=== PATIENT | male | born 1975 | race Caucasian/White ===

== ENCOUNTER 2020-12-30 17:35 | Inpatient (IN) ==
[2020-12-30 19:30] LABS: Basophils # (auto) 0.03 K/uL (0-0.2); Basophils % (auto) 0.5 %; Eosinophils % (auto) 1.6 %; Hemoglobin 15.1 g/dL (14.0-18.0); Lymphocytes # (auto) 1.53 K/uL (1.2-3.4); Lymphocytes % (auto) 24.3 %; Mean Corpuscular Hgb Conc 35.1 g/dL (32-36); Mean Corpuscular Volume 85.3 fL (80-100); Mean Platelet Volume 10.4 fL (7.4-10.4); Monocytes # (auto) 0.48 K/uL (0.11-0.59); Monocytes % (auto) 7.6 %; Neutrophils # (auto) 4.16 K/uL (1.4-6.5); Platelet Count 281 K/uL (130-400); RDW Coefficient of Variation 11.9 % (11.5-14.5); RDW Standard Deviation 36.7 fL (36.4-46.3); Red Blood Count 5.04 M/uL (4.7-6.1)
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
[2020-12-30 19:48] LABS: Alanine Aminotransferase 21 U/L (12-78); Albumin Level 3.9 gm/dl (3.4-5.0); Aspartate Aminotransferase 9 U/L (15-37); BUN Creatinine Ratio 11.8 (10-20); Blood Urea Nitrogen 13 mg/dl (7-18); C Reactive Protein < 0.29 mg/dl (0-0.29); Calcium 9.6 mg/dl (8.5-10.1); Carbon Dioxide 28 mmol/L (21-32); Chloride 105 mmol/L (98-107); Est GFR (African American) 98.4 ml/min; Est GFR (Non-African American) 84.9 ml/min; Glucose 97 mg/dl (70-99); Potassium 3.9 mmol/L (3.5-5.1); Sodium 140 mmol/L (136-145)
[2020-12-30 19:56] LABS: Albumin Globulin Ratio 1.2 (0.9-2); Alkaline Phosphatase 40 U/L (45-117); Bilirubin,Total 1.2 mg/dl (0.2-1); Globulin 3.2 gm/dl (2.5-4.0); Phosphorus 5.3 mg/dl (2.5-4.9); Total Protein 7.1 gm/dl (6.4-8.2)
[2020-12-30 20:19] LABS: Lyme Ab IgG w/WB Rflx Negative (Negative); Lyme Ab IgM w/WB Rflx Negative (Negative)
[2020-12-30 20:29] LABS: Appearance Urine Clear (Clear); Bilirubin Urine Negative (Negative); Blood Urine Negative (Negative); Color Urine Yellow; Glucose Urine UA Negative (Negative); Ketones Urine Negative (Negative); Leukocyte Esterase Urine Negative (Negative); Nitrite Urine Negative (Negative); Protein Urine Negative (Negative); Specific Gravity Urine 1.016 (1.000-1.030); Urobilinogen Urine Negative (Negative); pH Urine 5.5 (4.5-7.5)
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
[2020-12-31] MEDS ORDERED: ONDANSETRON INJ 2 MG/ML 2 ML VIAL IV PRN (00:17)
[2020-12-31 00:49] LABS: Creatine Kinase 48 U/L (39-308); Prostate Specific Antigen 0.544 ng/ml (0-4)
[2020-12-31 01:55] LABS: Folate (Folic Acid) > 20.00 ng/ml (>5.38); Vitamin B12 996 pg/ml (193-986)
--- NOTE | 2020-12-31 04:29 | Billing Data ---
Date of Service December 30, 2020 Coding Level of Care Code 27517 Initial Inpt Care Lvl 2
[2020-12-31 06:09] LABS: Basophils # (auto) 0.03 K/uL (0-0.2); Basophils % (auto) 0.5 %; Eosinophils % (auto) 3.3 %; Hemoglobin 14.4 g/dL (14.0-18.0); Immature Granulocytes # (auto) 0.01 K/uL (0.00-0.02); Immature Granulocytes % (auto) 0.2 %; Lymphocytes # (auto) 1.56 K/uL (1.2-3.4); Lymphocytes % (auto) 25.9 %; Mean Corpuscular Hemoglobin 29.6 pg (25-34); Mean Corpuscular Hgb Conc 35.1 g/dL (32-36); Mean Corpuscular Volume 84.4 fL (80-100); Mean Platelet Volume 10.7 fL (7.4-10.4); Monocytes # (auto) 0.44 K/uL (0.11-0.59); Monocytes % (auto) 7.3 %; Neutrophils # (auto) 3.78 K/uL (1.4-6.5); Neutrophils % (auto) 62.8 %; Platelet Count 256 K/uL (130-400); RDW Coefficient of Variation 11.8 % (11.5-14.5); RDW Standard Deviation 36.2 fL (36.4-46.3); Red Blood Count 4.86 M/uL (4.7-6.1); White Blood Count 6.02 K/uL (4.8-10.8)
[2020-12-31 06:49] LABS: Albumin Level 3.5 gm/dl (3.4-5.0); BUN Creatinine Ratio 16.1 (10-20); Calcium 8.9 mg/dl (8.5-10.1); Creatinine Clr Calc Pharmacy 112.8 ml/min; Est GFR (African American) 120.5 ml/min; Potassium 3.8 mmol/L (3.5-5.1)
[2020-12-31 06:51] LABS: Albumin Globulin Ratio 1.2 (0.9-2); Bilirubin,Total 1.1 mg/dl (0.2-1); Globulin 2.9 gm/dl (2.5-4.0); Total Protein 6.4 gm/dl (6.4-8.2)
--- NOTE | 2020-12-31 07:36 | Magnetic Resonance Report ---
LUMBAR SPINE MRI HISTORY: Bilateral lower extremity weakness. ascending neuropathy TECHNIQUE: Multiplanar multisequence MRI of the lumbar spine was performed without the use of contras t. The patient was unable to complete the postcontrast portion of the scan. COMPARISON: None. FINDINGS: For the purpose of the report the L5-S1 disc space will be located on axial image 23 of 25. Mild motion artifact on the T1 sequences. No fracture or subluxation within the lumbar spine. Disc sp aces are preserved. The conus terminates at the L1 level. Paravertebral soft tissues are unremarkable . No disc herniations. The distal thoracic spinal cord and cauda equina are within normal limits. No epidural masses or fluid collections identified. L1-L2: No significant central canal or neural foraminal narrowing. L2-L3: No significant central canal or neural foraminal narrowing. L3-L4: No significant central canal or neural foraminal narrowing. L4-L5: No significant central canal or neural foraminal narrowing. L5-S1: No significant central canal or neural foraminal narrowing. Small broad-based posterior disc b ulge asymmetric to the left IMPRESSION: 1. No fracture or subluxation. 2. No disc herniations. No significant central canal or neural foraminal narrowing. ACT 112: Negative or not required by law. Electronically signed by: Alexandru Lombardi M.D. 12/31/2020 7:35 AM
[2020-12-31] MEDS: ACETAMINOPHEN 325 MG TAB PO PRN (07:40)
--- NOTE | 2020-12-31 09:09 | Magnetic Resonance Report ---
MRI OF THE CERVICAL SPINE WITHOUT CONTRAST CLINICAL HISTORY: Ascending neuropathy. COMPARISON: None. TECHNIQUE: Utilizing a 1.5 Jessy magnet and dedicated coil, multiplanar, multiecho imaging of the ce rvical spine was performed without IV contrast. FINDINGS: Alignment of the cervical spine is anatomic. Vertebral body heights are maintained. There is no evide nce for fracture. Paravertebral soft tissues are unremarkable. Note is made of a 3 mm T2 hyperintense focus within the left aspect of the cord at the C2-C3 level. There is a 1.1 cm T2 hyperintense focus within the right anterior aspect of the thoracic cord at the T3 level. There is no cord expansion. C2-C3: The central canal and neural foramen are patent. C3-C4: The central canal and neural foramen are patent. C4-C5: The central canal and neural foramen are patent. C5-C6: Central canal and right neural foramen are patent. There is mild to moderate left neural fora maritza narrowing. C6-C7: Central canal and neural foramen are patent. C7-T1: Central canal and neural foramen are patent. IMPRESSION: Multiple foci of increased T2 signal within the thoracic and cervical spinal cord. Althou gh nonspecific, the findings suggest demyelinating disease. ACT 112: Negative or not required by law. Electronically signed by: Jean-Pierre Lin M.D. 12/31/2020 9:08 AM
--- NOTE | 2020-12-31 09:18 | Magnetic Resonance Report ---
MRI OF THE THORACIC SPINE WITHOUT CONTRAST CLINICAL HISTORY: Ascending neuropathy. COMPARISON: None. TECHNIQUE: Utilizing a 1.5 Jessy magnet and dedicated coil, multiplanar, multiecho imaging of the th oracic spine was performed without IV contrast. FINDINGS: Alignment of the thoracic spine is anatomic. Vertebral body heights are maintained. There i s no marrow edema or marrow replacement. Thoracic cord caliber is normal. There are multiple foci of increased T2 signal within the thoracic cord. These include a 9 mm focus within the right anterior as pect of the cord at the T3 level. There is subtle increased central cord signal at the T4-T5 level an d additional T2 hyperintense focus within left aspect of the cord at the T10 level. There is no cord expansion. Sensitivity for detection of active demyelination is diminished given lack of postcontrast imaging. Minimal multilevel degenerative changes within the thoracic spine are noted. Central canal and neural foramen are patent. IMPRESSION: Several foci of increased T2 signal within the thoracic cord, as described above. Although nonspecifi c, the findings favor demyelinating disease. ACT 112: Negative or not required by law. Electronically signed by: Jean-Pierre Lin M.D. 12/31/2020 9:17 AM
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
[2020-12-31] MEDS ORDERED: LORazepam 1 MG TAB PO STA (10:38)
[2020-12-31] MEDS ORDERED: GADOBUTROL 65ML VIAL IV ONE (11:23)
--- NOTE | 2020-12-31 12:23 | Magnetic Resonance Report ---
Brain MRI WITH AND WITHOUT CONTRAST HISTORY: Bilateral lower extremity weakness. TECHNIQUE: Multiplanar multisequence MRI of the brain was performed both before and after the intrave nous administration of contrast. COMPARISON STUDY: Head CT 12/26/2020. FINDINGS: No areas of restricted diffusion to suggest acute infarction. The midline structures are in tact. The paranasal sinuses and mastoid air cells are clear. The orbits are unremarkable. The major v ascular flow voids at the skull base are well-maintained. The ventricles and sulci are within normal limits. Multiple scattered foci of T2 hyperintensity seen within the periventricular and subcortical white matter of the supratentorial brain, hernandez, cervical medullary junction, and right cerebellar hem isphere. This is most pronounced along the periatrial white matter of the left temporal lobe. This is nonspecific but favors a demyelinating disease such as multiple sclerosis. Lyme disease could also a similar appearance but is considered less likely. Postcontrast sequences demonstrate a single puncta te focus of enhancement within the subcortical white matter of the left frontal lobe on coronal image 10 and axial image 13 which measures 5 mm. This could represent a small focus of active demyelinatio n. IMPRESSION: 1. Multiple scattered foci of T2 hyperintensity seen within the periventricular and subcortical white matter of the brain. This is highly suspicious for a demyelinating disease such as multiple sclerosi s. Lyme disease could also have a similar appearance but is considered less likely. 2. Possible punctate focus of enhancement within the subcortical white matter of the left frontal lob e. This raises the possibility of active demyelination. 3. No acute infarct ACT 112: Negative or not required by law. Electronically signed by: Alexandru Lombardi M.D. 12/31/2020 12:21 PM
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
[2020-12-31] MEDS ORDERED: methylPREDNISolone 1,000 MG in DEXTROSE 5% 250 ML IV STA (13:34)
[2020-12-31] MEDS ORDERED: methylPREDNISolone 1,000 MG in DEXTROSE 5% 250 ML IV SCH (14:15)
--- NOTE | 2020-12-31 14:41 | Fluoroscopy Report ---
FLUOROSCOPICALLY GUIDED LUMBAR PUNCTURE CLINICAL HISTORY: concern of multiple sclerosis. leg weakness. FLUOROSCOPY TIME: 0.2 minutes NUMBER OF FLUOROSCOPIC IMAGES: 1 PROCEDURE: The procedure, risks and benefits were discussed with the patient including the risk of s audra headache, bleeding and infection. The patient agreed to the procedure and informed written cons ent was obtained. The procedure was performed by Dr. Lin following a timeout. The right L4-L5 i nterlaminar space was targeted. Skin overlying the space was prepped and draped in sterile fashion an d local anesthesia was achieved with 1% lidocaine. Under intermittent fluoroscopic guidance, a 3 1/2 inch 22-gauge spinal obstruction into the thecal sac with immediate return of clear cerebrospinal flu id. 8 cc of CSF was collected in 4 vials and sent to the laboratory for analysis as ordered. The need le was removed. The patient tolerated the procedure well and no immediate complications were evident. IMPRESSION: Successful fluoroscopically guided lumbar puncture with collection of 8 cc of cerebrospin al fluid which was sent to the laboratory for analysis as ordered. ACT 112: Negative or not required by law. Electronically signed by: Jean-Pierre Lin M.D. 12/31/2020 2:40 PM
[2020-12-31 14:58] LABS: Total Protein CSF 77.1 mg/dl (15-45)
--- NOTE | 2020-12-31 15:23 | Hospitalist Progress Note ---
Date of Service December 31, 2020 Assessment & Plan (1) Peripheral neuropathy: Plan: 45 yo M with progressive BL leg weakness concerning for demyelinating process, admitted for further workup of illness. Bilateral Leg Weakness -Spine MRI from admission showing demyelinating findings. -Neurology consultation recommended brain MRI and LP, both of which were ordered. -Brain MRI revealed multiple demyelination lesions consistent with MS or Lyme, as his Lyme titer was negative, MS is likely. -LP results are currently pending -Neurology recommended 1g solu-medrol per day for 3 days which he received his first dose today. He will receive a dose pack after those 3 days. -Reassess neurological function daily. -CK, aldolase, and RICCO still pending Lytic Bone Lesion - CT A/P on 12/26/20: 5.1cm expansile lytic lesion - left iliac crest - increased in size since MRI of 10/17/2011. Indeterminate and differential considerations include benign and malignant etiologies. - Calcium level is normal. alkaline phosphatase is low at 36. DVT ppx: lovenox FEN/GI: regular diet, Code Status: Full Code Dispo: Med/Surg Admission and Anticipated Discharge Date Admission Date: December 30, 2020 Supervising Physician Co-Signing Physician Notes Resident Physician Supervision Note: I independently interviewed and examined the patient and verified the cole history and physical, reviewed labs and image studies and agree with resident Dr. Roldan findings and care plan. Subjective Pt is a 45 year old male admitted to the hospital for progessive weakness in his lower extremities b/l for the past 2 weeks. Pt presented to the ER after being seen by his neurologist who was concerned for Guillan Brusett. Today, pt states that his LE's feel weak and has about a 50% reduction in strength that has caused him difficulty in walking. He reports that he does not have any UE weakness, but reports some numbness below his 5th digit b/l. He reports that he has been bed ridden at home for the past 2 weeks with no improvement and in act it has gotten progressively worse. He also reports a 20 pound unintentional weight loss over 4 weeks that he attributes to decreased appetite. Pt denies fever, chills, SOB, chest pain, n/v, neck stiffness, vision loss, or headaches. Review of Systems Review of Systems: All systems reviewed & are unremarkable except as noted in HPI & below Physical Exam Constitutional: WD/WN, vitals as above Eyes: PERRL, conjunctivae normal, anicteric sclerae EOM intact bilaterally ENMT: Throat: uvula midline Neck: trachea midline Respiratory: normal respiratory effort, lungs clear to auscultation Cardiovascular: RRR, no murmur, no edema Gastrointestinal (Abdomen): normal bowel sounds, soft, nontender, no hepatosplenomegaly Neurologic: CN's II-XI intact bilaterally Speech / Cognition: + anomia Cranial Nerves: tongue midline, able to elevate shoulders bilaterally and symmetric palate elevation 5/5 strength in the UE b/l and 4/5 in the LE b/l. There is no loss of proprioception, vibration, or gross sensation discovered on examination. Finger to nose assessment normal. Failed to walk on either toes or heels. Pt was able to stand and hold his own weight, but could not do so for long. Positive Babinski on the L. Equivacol on the R. Psychiatric: A+Ox3, euthymic affect Results & Data Results & Data ([facility]) Vital Signs (Past 12 Hours) Vital Signs Temp Pulse Resp BP Pulse Ox 12/31/20 14:50 36.8 C 70 16 126/84 99 12/31/20 07:32 36.9 C 61 16 111/75 97 Resident Activity Tracking Resident Involvement: Resident Care Provided Care Provided: Adult Hospital Medicine
[2020-12-31 15:26] LABS: CSF Count Tube # 3
[2020-12-31 15:27] LABS: Appearance CSF Clear; CSF Xanthrochromic No xanthochromia; Color CSF Colorless; White Blood Cell CSF (A) 4 /uL (0-5)
[2020-12-31 15:28] LABS: Red Blood Cell CSF (A) 0 /uL (0-)
[2020-12-31 15:29] LABS: Red Blood Cell CSF (B) 0 /uL (0-); White Blood Cell CSF (B) 6 /uL (0-5)
[2020-12-31] MEDS: ENOXAPARIN INJ 40 MG/0.4 ML SYR SQ SCH (15:46)
[2021-01-01 06:31] LABS: Hematocrit (blood only) 40.6 % (42-52); Hemoglobin 14.7 g/dL (14.0-18.0); Immature Granulocytes # (auto) 0.02 K/uL (0.00-0.02); Immature Granulocytes % (auto) 0.2 %; Lymphocytes # (auto) 0.62 K/uL (1.2-3.4); Lymphocytes % (auto) 5.3 %; Mean Corpuscular Hemoglobin 30.2 pg (25-34); Mean Corpuscular Hgb Conc 36.2 g/dL (32-36); Mean Corpuscular Volume 83.5 fL (80-100); Mean Platelet Volume 10.4 fL (7.4-10.4); Monocytes % (auto) 1.7 %; Neutrophils # (auto) 10.82 K/uL (1.4-6.5); Neutrophils % (auto) 92.8 %; Platelet Count 292 K/uL (130-400); RDW Coefficient of Variation 11.7 % (11.5-14.5); RDW Standard Deviation 35.8 fL (36.4-46.3); Red Blood Count 4.86 M/uL (4.7-6.1); White Blood Count 11.66 K/uL (4.8-10.8)
[2021-01-01] MEDS: ENOXAPARIN INJ 40 MG/0.4 ML SYR SQ SCH (08:06)
[2021-01-01] MEDS: methylPREDNISolone 1,000 MG in DEXTROSE 5% 250 ML IV SCH (08:08)
--- NOTE | 2021-01-01 11:17 | Neurology Progress Note ---
Date of Service January 01, 2021 Assessment & Plan (1) Multiple sclerosis: Plan: This patient meets the diagnostic criteria for multiple sclerosis. He presents with a clinical episode of partial transverse myelitis with sensory and motor symptoms to the left lower extremity. He has objective evidence of multiple foci of demyelination of the spinal cord and brain that satisfy criteria for dissemination in space and time as many of these lesions are old (black holes) while least 1 in the gadolinium enhanced brain MRI was acute. Gadolinium was not administered for his spinal imaging although his clinical presentation is consistent with an acute episode of partial transverse myelitis. A lumbar puncture has been completed. Preliminary results reveal an elevated protein. The MS panel including oligoclonal banding should be available in about 1 week. (Technically speaking, given this patient's clinical presentation and MRI findings, including the more recent brain MRI findings, a positive lumbar puncture is not absolutely required for a diagnosis of MS. Of note, about 20% of patients with MS may have a negative lumbar puncture.) Patient will continue with IV Solu-Medrol, 1 g/day for 3 days, on his second dosage today, plan for third dose tomorrow, follow with Medrol Dosepak taper. Patient will likely need some inpatient rehabilitation prior to going home. His gait remains significantly altered and he is at elevated fall risk. I did discuss the likelihood that we will recommend starting disease modifying therapy in the outpatient setting. Based on the extent of his demyelinating disease I think he would be a good candidate for Ocrevus. There are of course, other disease modifying therapy options but I would probably avoid traditional platform agents such as Copaxone or interferons given the extent of his demyelinating disease burden. I would like to reassess this patient in the outpatient clinic in about 2 to 3 weeks. Admission and Anticipated Discharge Date Admission Date: December 30, 2020 Subjective Follow-up for probable MS The patient reports that he feels a little stronger compared with yesterday, able to ambulate a little bit better but continues to complain of lower extremity weakness, especially the left leg, balance remains poor. He has undergone extensive neuro imaging including MRI of the entire spinal column as well brain MRI completed yesterday. I did review the results of these studies with the patient this morning. As described previously, his spinal MRIs revealed multiple foci of demyelination, right anterior aspect of the cord at the T3 level, centrally at the T4-5 level, and within the left lateral aspect of the cord at the T10 level. There is a lesion within the left aspect of the cord at the C2-3 level. The brain MRI reveals multiple scattered foci of increased T2/flair signal, periventricular and subcortical location. There are additional lesions within the hernandez, cervical medullary junction, and right cerebellar hemisphere. There is a single punctate focus of enhancement within the subcortical white matter of the left frontal lobe suggestive of an active lesion. I reviewed the images as well as the radiologist's interpretation of these tests and agree. The brain MRI was a new study that was not available at the time of my assessment of him yesterday. This patient also underwent lumbar puncture/CSF analysis yesterday in the radiology department. Preliminary CSF results reviewed. CSF clear, colorless, no xanthochromia, WBC 4, RBC 0, protein 77.1, MS panel pending. Review of Systems Constitutional: no fever Eyes: no blind spots and no eye pain Neurologic: as per Subjective / HPI, + gait abnormality, + localized weakness, + loss of sensation and + paresthesia; no headache(s) and no memory loss Results & Data ([facility]) Vital Signs (Past 12 Hours) Vital Signs Temp Pulse Resp BP Pulse Ox 01/01/21 07:45 36.8 C 70 16 108/70 96 12/31/20 23:02 36.8 C 73 16 108/74 99 Exam (Neuro) Neurologic: Oriented to:: Person, Place and Time Attention: Span Intact and Concentration Intact Speech Fluency: negative Dysarthria or Dysfluency Fun d of Knowledge: Current Events, Past History and Vocabulary Cranial Nerves: Normal II, III, IV, , V, VII, VIII, IX, X, XI and XII Motor Strength: Normal Upper Extremities; negative Normal Lower Extremities Muscle Bulk/Involuntary Movements: No Involuntary Movements Sensation: negative Light Touch Intact or Vibration Intact Coordination: Limited Balance and Heel-Clement Abnormal; negative Finger-Nose Abnormal Deep Tendon Reflexes: Rt Biceps: 2+, Lt Biceps: 2+, Rt Patellar: 2+ and Lt Patellar: 2+ Special Tests: Babinski Present (left) Gait: Ataxic Details: Patient continues to exhibit a moderate degree of left lower extremity weakness, poor movement initiation, ataxia with [id number], and overall ataxic gait pattern. Has decreased vibratory sensation for the left lower limb, also has a patchy area of sensory loss to light touch along the left lower aspect of the back. Coding Level of Care Code 07235 Subseq Hosp Care Lvl 3 Diagnoses Multiple sclerosis G35
--- NOTE | 2021-01-01 13:39 | Hospitalist Progress Note ---
Date of Service January 01, 2021 Assessment & Plan (1) Peripheral neuropathy: Plan: 45 yo M with progressive BL leg weakness concerning for demyelinating process, admitted for further workup of illness. Bilateral Leg Weakness -Likely due to Multiple Sclerosis -Brain MRI revealed multiple demyelination lesions consistent with MS -LP revealed elevated CSF protein, oligoclonal bands are pending -Neurology recommended 1g solu-medrol per day for 3 days which he received his 2nd dose today. He will receive a dose pack after those 3 days. -PT/OT consultation ordered. -Reassess neurological function daily. -CK, aldolase, and RICCO still pending Lytic Bone Lesion - CT A/P on 12/26/20: "5.1cm expansile lytic lesion within the left iliac crest which has increased in size since MRI of 10/17/2011. This remains pathologically indeterminate and differential considerations include benign and malignant etiologies." - calcium has been WNL during hospitalization DVT ppx: lovenox FEN/GI: regular diet Code Status: Full Code Dispo: Med/Surg Admission and Anticipated Discharge Date Admission Date: December 30, 2020 Supervising Physician Co-Signing Physician Notes Resident Physician Supervision Note: I independently interviewed and examined the patient and verified the cole history and physical, reviewed labs and image studies and agree with resident Dr. Roldan findings and care plan. Subjective Pt is seen at bedside today. In relatively good spirits today. He states that he feels that he has had mild improvement overnight stating that he feels that his L leg is moving better and is stronger than yesterday. He reports being able to walk to the bathroom with assistance. He is aware of the likely diagnosis of multiple sclerosis and he feels that he is handling it well. He states that he has not had a bowel movement today or yesterday, but he feels this is due to not eating as much in the hospital as he does at home. Pt has no other complaints at this time. Review of Systems Review of Systems: All systems reviewed & are unremarkable except as noted in HPI & below Musculoskeletal: + muscle weakness (LE b/l) Physical Exam Constitutional: WD/WN, vitals as above Eyes: PERRL, conjunctivae normal, anicteric sclerae EOM intact bilaterally ENMT: Throat: uvula midline Neck: trachea midline Respiratory: normal respiratory effort, lungs clear to auscultation Cardiovascular: RRR, no murmur, no edema Gastrointestinal (Abdomen): normal bowel sounds, soft, nontender, no hepatosplenomegaly Musculoskeletal: Spine: + Lhermitte's sign positive Extremities: no muscle atrophy 4/5 strength in his LE b/l (mild improvement from yesterday), 5/5 strength in the UE b/l. No paresthesia noted on examination. Skin: no rashes, warm and dry Neurologic: CN's II-XI intact bilaterally Cranial Nerves: tongue midline, able to elevate shoulders bilaterally and symmetric palate elevation Psychiatric: A+Ox3, euthymic affect Results & Data Results & Data ([facility]) Vital Signs (Past 12 Hours) Vital Signs Temp Pulse Resp BP Pulse Ox 01/01/21 07:45 36.8 C 70 16 108/70 96
--- NOTE | 2021-01-01 13:46 | Medical Student Progress Note ---
Date of Service January 01, 2021 Assessment & Plan (1) Bilateral leg weakness: Plan: -MRI of c spine, t spine, and brain revealed scattered foci of hypersensitivity. although nonspecific, favor demyelinating disease -CSF total protein elevated 77.1, suggestive of MS -(-) Lyme, rest of CSF panel pending, RICCO pending, aldolase pending -pt feels to be improving on methylprednisone 1000mg -waiting on PT/OT to do an evaluation of patient and make recommendations for d ischarge/rehab -waiting on pending lab results to direct future care -continue IV Solu-Medrol, 1 g/day for 3 days, on his second dosage today, third dose tomorrow, follow with Medrol Dosepak taper. -f/u neurology outpatient Plan: DVTppx: lovenox code status: full code FEN/GI: regular dispo: med/surge Admission and Anticipated Discharge Date Admission Date: December 30, 2020 Brianna Calloway is a 45 yr/oM with a 2 week hx of leg weakness being worked up for likely MS diagnosis. Today Brodie says he is feeling a little stronger in his left leg after first day of steroid treatment. It is easier for him to ambulate. He no longer has to peanut picker his left leg to move it across the bed. He has enough strength to swing left leg over the side of the bed. He still notes numbness in his hands and feet. He notes when he flexes his chin down towards his chest he gets a electric shock like sensation town his arms bilaterally. He denies any SOB, chest pain, or headache. Review of Systems Review of Systems: All systems reviewed & are unremarkable except as noted in HPI & below Physical Exam Constitutional: WD/WN, vitals as above Neck: normal visual inspection Respiratory: normal respiratory effort, lungs clear to auscultation Cardiovascular: RRR, no murmur, no edema Gastrointestinal (Abdomen): normal bowel sounds, soft, nontender, no hepatosplenomegaly Skin: no rashes, warm and dry Neurologic: No change from yesterday Results & Data ([facility]) Vital Signs (Past 12 Hours) Vital Signs Temp Pulse Resp BP Pulse Ox 01/01/21 07:45 36.8 C 70 16 108/70 96
--- NOTE | 2021-01-01 16:58 | Electrocardiogram Report ---
Test Reason : Blood Pressure : / mmHG Vent. Rate : 059 BPM Atrial Rate : 059 BPM P-R Int : 146 ms QRS Dur : 072 ms QT Int : 378 ms P-R-T Axes : 033 -11 040 degrees QTc Int : 374 ms Sinus bradycardia Low voltage QRS Cannot rule out Anterior infarct (cited on or before 26-DEC-2020) Abnormal ECG When compared with ECG of 26-DEC-2020 12:46, No significant change was found Confirmed by Bruce Quiroga ([id number]) on 01/01/2021 4:57:47 PM Referred By: REFERRED SELF Confirmed By:Bruce Quiroga
[2021-01-01] MEDS: ACETAMINOPHEN 325 MG TAB PO PRN (19:49)
[2021-01-02] MEDS ORDERED: FAMOTIDINE 20 MG TAB PO ONE (06:29)
[2021-01-02] MEDS: ENOXAPARIN INJ 40 MG/0.4 ML SYR SQ SCH (07:58)
[2021-01-02] MEDS: methylPREDNISolone 1,000 MG in DEXTROSE 5% 250 ML IV SCH (07:58)
--- NOTE | 2021-01-02 11:20 | Neurology Progress Note ---
Date of Service January 02, 2021 Assessment & Plan (1) Multiple sclerosis: Plan: Multiple sclerosis presenting with an episode of partial transverse myelitis. Extensive neuroimaging including brain and entire spinal column suggestive of acute and chronic multifocal demyelination in a pattern consistent with MS and satisfying the criteria for dissemination in space and time. Lumbar puncture has been completed, oligoclonal banding pending. As discussed previously, a positive lumbar puncture is not absolutely required for a diagnosis of MS in this patient. However, a positive lumbar puncture with oligoclonal banding pattern suggestive of MS would be considered a substitute for the criterion of dissemination in time and is considered predictive of future relapse. Because this patient's brain MRI reveals an acute lesion and he has evidence of multiple nonenhancing lesions elsewhere throughout the brain and spinal column, the criteria for dissemination in space and time is met. I also appreciate a so- called black hole on this patient's brain MRI, specifically the gadolinium enhanced coronal T1 sequences, page 20 out of 29, adjacent to the left lateral ventricle. A "black hole" would suggest a chronic MS lesion. This patient has completed 3 days of Solu-Medrol. Would recommend a Medrol dose pack taper. He will need some additional physical therapy as his gait remains significantly altered/ataxic. Inpatient or outpatient PT is currently in c onsideration. Rehab team will make ultimate determination. MS panel results will likely not be available until late next week. I would like to see this patient in neurology clinic in 2 to 3 weeks. I did discuss the next step with this patient which will likely include starting a disease modifying therapy, probably Ocrevus, within the next few weeks. I also discussed potentially obtaining a second opinion regarding his diagnosis with an MS specialist although this consultation will likely take a few months and we would rather not delay starting disease modifying therapy. Admission and Anticipated Discharge Date Admission Date: December 30, 2020 Subjective Follow-up for MS The patient reports continued improvement in his strength since he was hospitalized for lower extremity weakness and vague sensory loss. His balance remains slightly impaired, however. He has been able to walk around the floor with a walker, and for short distances in his room without assistance. No vertigo or dizziness. He does remark to me that he has noticed that when he bends his head and neck forward he experiences a shocklike sensation up and down his spine. No visual complaint. Continues to report a vague feeling of numbness affecting his hands. Review of Systems Constitutional: no fever Eyes: no blind spots, no diplopia and no eye pain Neurologic: as per Subjective / HPI, + gait abnormality, + unsteadiness, + localized weakness and + loss of sensation; no tremor(s), no headache(s) and no confusion Results & Data ([facility]) Vital Signs (Past 12 Hours) Vital Signs Temp Pulse Resp BP Pulse Ox 01/02/21 07:13 36.7 C 61 16 108/67 98 Laboratory Results Labs of note, ESR 5, CRP less than 0.29, vitamin B12 996, Lyme disease IgG and IgM negative, CSF clear, colorless, no xanthochromia, no significant elevation in cell counts, CSF protein 77.1. Patient's neuro imaging including MRI of the brain and spinal column has been reviewed previously. Exam (Neuro) Neurologic: Oriented to:: Person, Place and Time Memory: Short Term Intact and Remote Intact Attention: Span Intact and Concentration Intact Speech Fluency: negative Dysarthria or Dysfluency Fund of Knowledge: Current Events, Past History and Vocabulary Cranial Nerves: Normal II, III, IV, , V, VII, VIII, IX, X, XI and XII Motor Strength: Normal Upper Extremities; negative Normal Lower Extremities Muscle Bulk/Involuntary Movements: No Involuntary Movements Coordination: Limited Balance Gait: Ataxic Coding Level of Care Code 72918 Subseq Hosp Care Lvl 2 Diagnoses Multiple sclerosis G35
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
[2021-01-04 21:26] LABS: Aldolase 3.5 U/L (< OR = 8.1); Anti Nuclear Antibody Screen NEGATIVE (NEGATIVE); CK Total 42 U/L (44-196); CK-MB 0 % (<5); CK-MM 100 % (95-100)
[2021-01-13 18:20] LABS: Albumin, CSF 39.2 mg/dL (8.0-42.0); IgG CSF 11.3 mg/dL (0.8-7.7); IgG Index, CSF 1.35 (<0.66); IgG Serum 854 mg/dL (600-1640); Lyme IgG Band Pattern CSF DNR; Lyme IgG CSF NO BANDS DETECTED; Lyme IgM Band Pattern CSF DNR; Lyme IgM CSF NO BANDS DETECTED; Myelin Basic Protein <2.0 mcg/L (2.0-4.0); Synthesis Rate, IgG CSF 34.9 mg/24 h (-9.9-3.3)
== END 2021-01-02 17:13 | disposition home health service (06) | DRG 60 ==
LOC: ED 17:35 → SUATTDRO 20:21 → 3E 20:21
DX: V29 Motorcycle rider injured in other and unspecified transport accidents; M89.9 Disorder of bone, unspecified; G35 Multiple sclerosis